=== PATIENT | female | born 1980 | race Caucasian/White ===

== ENCOUNTER 2017-07-20 10:15 | Emergency (ER) | payer BC ==
[~2017-07-20] VITALS: Ht 175.3 cm; Wt 68.2 kg
[~2017-07-20 10:15] MED LIST: MOTRIN 600600 MG/TAB PO; MOTRIN 800800 MG/TAB PO; PERCOCET 325 MG1 TA2 PO; PRENATAL1 TA1; ZOLOFT 50MG50 MG
[2017-07-20 10:16] VITALS: TEMP 97.8
[2017-07-20 12:26] VITALS: BP 103/72; PULSE 67
== END 2017-07-20 12:40 | disposition home or self-care (01) ==
LOC: COL.ER 10:15
DX: E86.0 Dehydration (principal)
CPT/HCPCS: J2765; J7030

== ENCOUNTER → 2020-02-28 | Outpatient (CLI) | payer BC | LOC: COL.LAB 19:32 | DX: Z20.828 Contact with and (suspected) exposure to other viral communicable diseases (principal) ==

== ENCOUNTER → 2020-03-06 | Outpatient (REF) | LOC: COL.LAB 14:23 | DX: Z20.822 Contact with and (suspected) exposure to COVID-19 (principal) ==